=== PATIENT | male | born 1950 | race Caucasian/White ===

== ENCOUNTER 2018-12-20 15:27 | Outpatient (CLI) | payer MEDICARE ==
--- NOTE | 2018-12-20 15:52 | RAD ---
Left leg 2 view COMPARISON: 11/12/2018 FINDINGS: Stable focal abnormality of the mid diaphysis of the fibula. Where visualized, no significa nt periosteal reaction is identified with a nonaggressive appearing expansile process which may relate to fracture healing. IMPRESSION: Nonaggressive appearing mild expansile process of the mid diaphysis of the left fibula wh ich may represent a healing fracture. The possibility of an underlying expansile lesion is not entirely excluded given absence of a documented fracture in this region. Therefore, close continued c linical follow-up as well as imaging follow-up to confirm expected evolution of fracture recommended. CODE T Transcribed Date/Time: 12/20/2018 5:09 PM
== END 2018-12-20 15:28 | disposition home or self-care (01) ==
LOC: SCSRAD 15:27
PROVIDERS: ATTEND Family Medicine
DX: S82.492D Other fracture of shaft of left fibula, subsequent encounter for closed fracture with routine healing (principal)

== ENCOUNTER 2020-01-23 12:51 | Outpatient (CLI) | payer MEDICARE ==
--- NOTE | 2020-01-23 17:43 | CT ---
EXAM: RIGHT UPPER EXTREMITY CT SCAN WITHOUT IV CONTRAST: 01/23/20 HISTORY: Soft tissue injury right upper arm with swelling. No evidence for acute fracture or dislocation or other significant acute osseous process. There is so me very minimal nonspecific fat stranding. There is some AC joint and glenohumeral joint mild osteoar throsis. Minimal downsloping of the anterior acromion. No abnormal joint effusion. No significant sub acromial or subdeltoid bursal fluid collection. No evidence for intramuscular mass or intramuscular a bnormal fluid collection or mild necrosis. IMPRESSION: Mild degenerative changes right AC and glenohumeral joints. Some very minimal nonspecific subcutaneou s fat stranding. No fracture or dislocation or other significant acute osseous process. If the patient has persistent or worsening soft tissue swelling, and continued concern for cellulitis or infection. Follow-up MRI exam would be more sensitive in evaluating for soft tissue changes. POS: [facility]
== END 2020-01-23 12:52 | disposition home or self-care (01) ==
LOC: SCSCT 12:51
PROVIDERS: ATTEND Family Medicine
DX: S49.91XD Unspecified injury of right shoulder and upper arm, subsequent encounter (principal); M19.011 Primary osteoarthritis, right shoulder

== ENCOUNTER 2020-01-30 08:40 | Outpatient (CLI) | payer MEDICARE ==
--- NOTE | 2020-01-30 12:00 | MRI ---
MRI RIGHT SHOULDER WITHOUT CONTRAST: HISTORY: S49.91XT, soft tissue injury of right arm. COMPARISON: CT 01/18/2020. FINDINGS: BICEPS TENDON: The extraarticular biceps tendon is normal. Mild intraarticular tendinosis. LABRUM: There is circumferential labral maceration with extensive intrasubstance tearing. ROTATOR CUFF: There is a high-grade 50% hidden interstitial tear anterior 1.6 cm fibers infraspinatus tendon footpr int. 20-30% bursal surface partial tear of the anterior 1 cm fibrous supraspinatus tendon. No full- thickness perforation. There is also some moderate undersurface partial tearing of the myotendinous junction of the supraspinatus tendon. SUBSCAPULARIS: Mildly tendinotic. CARTILAGE: Multifocal full-thickness cartilage fissures of the posterior and superior glenoid near the labral te ar. There is a type III acromion with thickened acromial spur and coracoacromial ligament. Normal g lenoid version. SOFT TISSUE: Small-cell subacromial subdeltoid bursa effusion. Axillary pouch is thickened. Low-grade loss of th e subcoracoid fat. MUSCLES: Significant muscle atrophy. IMPRESSION: 1. Near-complete circumferential intrasubstance labral tear with maceration of posterior fibers and circumferential intrasubstance tearing. 2. Multifocal full-thickness cartilage fissures of the posterior glenoid near the labral tear. 3. 50-60% interstitial tear of the footprint posterior 1.6 cm fibrous infraspinatus tendon without f ull-thickness perforation. 4. Mild 30-40% bursal surface tearing anterior 1 cm fibrous supraspinatus tendon. No full-thickness perforation. 5. Low-grade tear throughout the supraspinatus myotendinous junction, 20-30% partial articular surfa ce tearing. 6. Type III acromion with narrowing of the subacromial space and reactive small subacromial subdelto id bursa effusion. 7. Mildly thickened axillary pouch and some loss of normal subcoracoid fat can be seen with capsulit is in the correct clinical setting. POS: [facility]
== END 2020-01-30 08:41 | disposition home or self-care (01) ==
LOC: BICMRI 08:40 → MRI 08:41
PROVIDERS: ATTEND Family Medicine
DX: S49.91XD Unspecified injury of right shoulder and upper arm, subsequent encounter (principal); I89.0 Lymphedema, not elsewhere classified; S43.491D Other sprain of right shoulder joint, subsequent encounter

== ENCOUNTER 2021-02-04 09:11 | Outpatient (CLI) | payer MEDICARE ==
[2021-02-04 10:49] LABS: Anion Gap 14 mmol/L (10-20); BUN (Urea Nitrogen) 15 mg/dL (8.4-25.7); Calc. Creatinine Clearance 0 mL/min (70-130); Calcium 9.4 mg/dL (7.8-10.44); Carbon Dioxide 22 mmol/L (23-31); Chloride 107 mmol/L (98-107); Glucose 104 mg/dL (83-110); Potassium 4.4 mmol/L (3.5-5.1); Sodium 139 mmol/L (136-145)
[2021-02-04 10:52] LABS: Hemoglobin 12.4 g/dL (13.5-17.5); Mean Corpuscular HGB CONC 33.9 g/dL (32.0-36.0); Mean Corpuscular Hemoglobin 31.2 pg (27.0-33.0); Mean Platelet Volume 12.4 fl (7.4-10.4); Platelet Count 127 10x3/uL (150-450); RBC Distribution Width 16.2 % (11.5-14.5); Red Blood Cell (RBC) Count 3.98 10x6/uL (4.32-5.72)
[2021-02-04 10:53] LABS: INR-International Normal Ratio 1.1; Prothrombin Time 11.8 sec (9.5-12.1)
== END 2021-02-04 09:12 | disposition home or self-care (01) ==
LOC: LABBT 09:11
PROVIDERS: ATTEND Internal Medicine Cardiovascular Disease
DX: I48.4 Atypical atrial flutter (principal); I48.0 Paroxysmal atrial fibrillation
CPT/HCPCS: 80048; 85027; 85610

== ENCOUNTER 2021-02-07 06:09 | Day surgery (SDC) | payer MEDICARE ==
[2021-02-06 08:51] VITALS: BMI 33.5
[2021-02-07] MEDS ORDERED: Heparin 10,000 UNITS/ 10 ML VIAL ONE (06:48)
[2021-02-07] MEDS ORDERED: Lidocaine 1% (PF) 30 ML VIAL ONE (06:48)
[2021-02-07] MEDS ORDERED: Heparin 25,000 units/D5W 500 ML ONE (06:48)
[2021-02-07] MEDS ORDERED: Midazolam HCl 2 mg/2 ml Vial ONE (07:04)
[2021-02-07] MEDS ORDERED: Famotidine/PF 20 mg/2ml Vial ONE (07:04)
[2021-02-07] MEDS ORDERED: Fentanyl 100 MCG/2 ML VIAL ONE ×2 (07:13→10:28)
[2021-02-07] MEDS ORDERED: ePHEDrine Sulfate 50 MG/10 ML VIAL ONE (07:24)
[2021-02-07] MEDS ORDERED: Rocuronium Bromide 10 MG/ML (10ML VIAL) ONE (07:24)
[2021-02-07] MEDS ORDERED: Metoprolol Tartrate 5 MG/5 ML VIAL ONE (07:24)
[2021-02-07] MEDS ORDERED: Dexamethasone 20 MG/5 ML VIAL ONE (07:24)
[2021-02-07] MEDS ORDERED: Lidocaine 1% PF 5 ML VIAL ONE (07:24)
[2021-02-07] MEDS ORDERED: PHENYLEPHRINE-NS 100 MCG/ML 10 ML SYRINGE ONE (07:24)
[2021-02-07] MEDS ORDERED: Glycopyrrolate 0.2 MG/ML 5 ML SYRINGE ONE (07:24)
[2021-02-07] MEDS ORDERED: PROPOFOL 200 MG/20 ML VIAL ONE (07:24)
[2021-02-07] MEDS ORDERED: Ondansetron PF 4 MG/2 ML Vial ONE (07:24)
[2021-02-07] MEDS ORDERED: Esmolol 100 MG/10 ML VIAL ONE (07:24)
[2021-02-07] MEDS ORDERED: Phenylephrine 10 MG/ML VIAL ONE (08:16)
[2021-02-07] MEDS ORDERED: Protamine Sulfate 50 MG/5 ML VIAL ONE (10:27)
== END 2021-02-07 16:23 | disposition home or self-care (01) ==
LOC: CCL 06:09
PROVIDERS: ATTEND Internal Medicine Cardiovascular Disease
PROC: B246ZZ4 Ultrasonography of Right and Left Heart, Transesophageal (ICD-10-PCS; principal; 2021-02-07)
PROC: 02583ZZ Destruction of Conduction Mechanism, Percutaneous Approach (ICD-10-PCS; 2021-02-07)
PROC: 02K83ZZ Map Conduction Mechanism, Percutaneous Approach (ICD-10-PCS; 2021-02-07)
DX: I48.0 Paroxysmal atrial fibrillation (principal); I48.4 Atypical atrial flutter; I11.9 Hypertensive heart disease without heart failure; I34.0 Nonrheumatic mitral (valve) insufficiency; Z86.73 Personal history of transient ischemic attack (TIA), and cerebral infarction without residual deficits; Z79.01 Long term (current) use of anticoagulants; Z79.899 Other long term (current) drug therapy
CPT/HCPCS: 76942; 85347; 93005; 93312; 93613; 93655; 93656; 93662; C1732; C1759; C1894; C2630; J1100; J1644; J2001; J2250; J2370; J2405; J2704; J2720; J3010; S0028

== ENCOUNTER 2022-02-18 11:45 | Inpatient (IN) | payer MEDICARE ==
[2022-02-18 12:47] LABS: Hemoglobin 11.2 g/dL (13.5-17.5); Mean Corpuscular HGB CONC 33.5 g/dL (32.0-36.0); Mean Corpuscular Hemoglobin 30.8 pg (27.0-33.0); Mean Corpuscular Volume 91.8 fl (81.2-95.1); RBC Distribution Width 21.2 % (11.5-14.5); Red Blood Cell (RBC) Count 3.64 10x6/uL (4.32-5.72); White Blood Cell (WBC) Count 4.9 10x3/uL (3.5-10.5)
[2022-02-18 12:48] LABS: Platelet Count 139 10x3/uL (150-450)
[2022-02-18 12:55] LABS: Prothrombin Time 11.2 sec (9.5-12.1)
[2022-02-18 12:59] LABS: ALT (SGPT) 21 U/L (8-55); AST (SGOT) 36 U/L (5-34); Albumin 4.3 g/dL (3.4-4.8); Alkaline Phosphatase 67 U/L (40-110); Anion Gap 14 mmol/L (10-20); BUN (Urea Nitrogen) 19 mg/dL (8.4-25.7); Bilirubin, Total 0.6 mg/dL (0.2-1.2); Calc. Creatinine Clearance 0 mL/min (70-130); Calcium 9.3 mg/dL (7.8-10.44); Carbon Dioxide 23 mmol/L (23-31); Chloride 106 mmol/L (98-107); Estimated GFR 66; Glucose 104 mg/dL (83-110); Potassium 4.4 mmol/L (3.5-5.1); Protein, Total 6.3 g/dL (5.8-8.1); Sodium 139 mmol/L (136-145)
[2022-02-18 14:32] VITALS: BMI 35.2
[2022-02-20] MEDS ORDERED: CEFAZOLIN 1 GM VIAL ONE (06:41)
[2022-02-20] MEDS ORDERED: Protamine Sulfate 50 MG/5 ML VIAL ONE (06:41)
[2022-02-20] MEDS ORDERED: Heparin 10,000 UNITS/ 10 ML VIAL ONE (06:41)
== END 2022-02-20 13:32 | disposition home or self-care (01) | DRG 274 ==
LOC: SURG A 02-20 06:06
PROVIDERS: ADMIT Internal Medicine Cardiovascular Disease; ATTEND Internal Medicine Cardiovascular Disease
PROC: 02L73DK Occlusion of Left Atrial Appendage with Intraluminal Device, Percutaneous Approach (ICD-10-PCS; principal; 2022-02-20)
PROC: B24BZZ4 Ultrasonography of Heart with Aorta, Transesophageal (ICD-10-PCS; 2022-02-20)
DX: I48.0 Paroxysmal atrial fibrillation (principal); Z20.822 Contact with and (suspected) exposure to COVID-19; Z00.6 Encounter for examination for normal comparison and control in clinical research program; I10 Essential (primary) hypertension; Z86.73 Personal history of transient ischemic attack (TIA), and cerebral infarction without residual deficits; Z79.01 Long term (current) use of anticoagulants; Z82.49 Family history of ischemic heart disease and other diseases of the circulatory system; Z79.899 Other long term (current) drug therapy; Z87.19 Personal history of other diseases of the digestive system; I48.4 Atypical atrial flutter
CPT/HCPCS: 33340; 36430; 80053; 85027; 85347; 85610; 86850; 86900; 86901; 87811; 93312; C1759; J0690; J1644; J2720

== ENCOUNTER 2022-03-20 15:02 | Emergency (ER) | payer MEDICARE ==
[2022-03-20 16:55] LABS: INR-International Normal Ratio 1.4; PTT 32.6 sec (22.9-36.1); Prothrombin Time 17.1 sec (12.0-14.7)
[2022-03-20 16:59] LABS: #Eosinphils 0.1 thou/uL (0.0-0.7); #Lymphocytes 1.3 thou/uL (1.20-3.40); #Monocytes 0.4 thou/uL (0.11-0.59); #Neutrophils 2.2 thou/uL (1.40-6.50); %Basophils 0.1 % (0.0-1.0); %Eosinophils 1.8 % (0.0-10.0); %Lymphocytes 33.2 % (21.0-51.0); %Monocytes 9.4 % (0.0-10.0); %Neutrophils 55.6 % (42.0-75.0); Hemoglobin 9.7 g/dL (14.0-18.0); Mean Corpuscular Hemoglobin 31.8 pg (27.0-31.0); Mean Corpuscular Volume 96.3 fL (78.0-98.0); Mean Platelet Volume 11.5 fL (7.4-10.4); Platelet Count 140 thou/uL (130-400); RBC Distribution Width 20.7 % (11.5-14.5); Red Blood Cell (RBC) Count 3.05 mill/uL (4.70-6.10)
[2022-03-20 17:03] LABS: ALT (SGPT) 16 U/L (8-55); AST (SGOT) 25 U/L (5-34); Albumin 4.6 g/dL (3.4-4.8); Alkaline Phosphatase 79 U/L (40-110); Anion Gap 15 mmol/L (10-20); BUN (Urea Nitrogen) 27 mg/dL (8.4-25.7); Bilirubin, Total 0.8 mg/dL (0.2-1.2); Calc. Creatinine Clearance 0 mL/min (70-130); Calcium 9.9 mg/dL (7.8-10.44); Carbon Dioxide 23 mmol/L (23-31); Chloride 108 mmol/L (98-107); Estimated GFR 41; Globulin 2.4 g/dL (2.4-3.5); Glucose 103 mg/dL (83-110); Potassium 4.8 mmol/L (3.5-5.1); Sodium 141 mmol/L (136-145)
== END 2022-03-20 18:50 | disposition home or self-care (01) ==
LOC: ERS 15:02
DX: K92.2 Gastrointestinal hemorrhage, unspecified (principal); D50.0 Iron deficiency anemia secondary to blood loss (chronic); I48.91 Unspecified atrial fibrillation; E78.5 Hyperlipidemia, unspecified; E78.00 Pure hypercholesterolemia, unspecified; I10 Essential (primary) hypertension; M19.90 Unspecified osteoarthritis, unspecified site; M06.9 Rheumatoid arthritis, unspecified; Z85.89 Personal history of malignant neoplasm of other organs and systems; Z85.47 Personal history of malignant neoplasm of testis; Z79.01 Long term (current) use of anticoagulants; Z79.899 Other long term (current) drug therapy
CPT/HCPCS: 80053; 85025; 85610; 85730; 86850; 86900; 86901; 99284

== ENCOUNTER 2022-04-03 08:25 | Outpatient (CLI) | payer MEDICARE ==
[2022-04-03 09:03] LABS: Hemoglobin 7.4 g/dL (13.5-17.5); Mean Corpuscular Hemoglobin 30.8 pg (27.0-33.0); Mean Corpuscular Volume 96.3 fl (81.2-95.1); Mean Platelet Volume 11.9 fl (7.4-10.4); Platelet Count 184 10x3/uL (150-450); RBC Distribution Width 20.3 % (11.5-14.5)
[2022-04-03 09:28] LABS: INR-International Normal Ratio 1.1; Prothrombin Time 11.4 sec (9.5-12.1)
[2022-04-03 09:39] LABS: Anion Gap 15 mmol/L (10-20); BUN (Urea Nitrogen) 26 mg/dL (8.4-25.7); Calc. Creatinine Clearance 0 mL/min (70-130); Calcium 9.4 mg/dL (7.8-10.44); Carbon Dioxide 21 mmol/L (23-31); Chloride 108 mmol/L (98-107); Estimated GFR 50; Glucose 128 mg/dL (83-110); Potassium 4.7 mmol/L (3.5-5.1); Sodium 139 mmol/L (136-145)
== END 2022-04-03 08:26 | disposition home or self-care (01) ==
LOC: LABBT 08:25
PROVIDERS: ATTEND Internal Medicine Cardiovascular Disease
DX: I48.0 Paroxysmal atrial fibrillation (principal); Z20.822 Contact with and (suspected) exposure to COVID-19; Z79.01 Long term (current) use of anticoagulants; Z95.818 Presence of other cardiac implants and grafts
CPT/HCPCS: 80048; 85027; 85610; 87811

== ENCOUNTER 2022-04-15 07:45 | Outpatient (CLI) | payer MEDICARE | END 2022-04-15 07:46 | disposition home or self-care (01) | LOC: LABBT 07:45 | PROVIDERS: ATTEND Internal Medicine Cardiovascular Disease | DX: Z20.822 Contact with and (suspected) exposure to COVID-19 (principal) | CPT/HCPCS: 87811 ==

== ENCOUNTER 2022-04-17 08:31 | Day surgery (SDC) | payer MEDICARE ==
[2022-04-15 13:15] VITALS: BMI 34.4
[2022-04-17 09:33] LABS: %Basophils 0.3 % (0.0-1.0); %Eosinophils 1.5 % (0.0-10.0); %Lymphocytes 33.8 % (21.0-51.0); %Monocytes 9.5 % (0.0-10.0); Hemoglobin 8.2 g/dL (14.0-18.0); Mean Corpuscular HGB CONC 32.5 g/dL (32.0-36.0); Mean Corpuscular Hemoglobin 31.4 pg (27.0-31.0); Mean Corpuscular Volume 96.5 fL (78.0-98.0); Platelet Count 158 thou/uL (130-400); RBC Distribution Width 18.9 % (11.5-14.5); Red Blood Cell (RBC) Count 2.63 mill/uL (4.70-6.10); White Blood Cell (WBC) Count 3.1 thou/uL (4.8-10.8)
[2022-04-17 09:45] LABS: Anion Gap 18 mmol/L (10-20); BUN (Urea Nitrogen) 28 mg/dL (8.4-25.7); Calc. Creatinine Clearance 78 mL/min (70-130); Carbon Dioxide 17 mmol/L (23-31); Chloride 107 mmol/L (98-107); Estimated GFR 58; Glucose 109 mg/dL (83-110); Potassium 4.7 mmol/L (3.5-5.1); Sodium 137 mmol/L (136-145)
[2022-04-17] MEDS ORDERED: PROPOFOL 0 ML ONE (10:58)
[2022-04-17] MEDS ORDERED: Ketamine 50 MG/ML (10ML VIAL) ONE (10:58)
[2022-04-17 11:39] LABS: #Monocytes 0.3 thou/uL (0.11-0.59); #Neutrophils 1.7 thou/uL (1.40-6.50)
[2022-04-17] MEDS ORDERED: PHENYLEPHRINE-NS 100 MCG/ML 10 ML SYRINGE ONE (11:49)
== END 2022-04-17 12:54 | disposition home or self-care (01) ==
LOC: SDC 08:31
PROVIDERS: ATTEND Internal Medicine Cardiovascular Disease
PROC: B246ZZ4 Ultrasonography of Right and Left Heart, Transesophageal (ICD-10-PCS; principal; 2022-04-17)
DX: I48.19 Other persistent atrial fibrillation (principal); I48.92 Unspecified atrial flutter; I34.0 Nonrheumatic mitral (valve) insufficiency; Z79.82 Long term (current) use of aspirin; Z79.899 Other long term (current) drug therapy; Z91.041 Radiographic dye allergy status; Z95.818 Presence of other cardiac implants and grafts
CPT/HCPCS: 80048; 85025; 93312; J2704

== ENCOUNTER 2022-04-22 10:10 | Day surgery (SDC) | payer MEDICARE ==
[2022-04-22] MEDS ORDERED: Acetaminophen 325 MG TAB PO SCH (10:30)
[2022-04-22] MEDS ORDERED: Acetaminophen 500 MG TAB ONE (11:47)
[2022-04-22] MEDS ORDERED: Acetaminophen 325 MG TAB ONE ×2 (11:48)
[2022-04-22 12:30] LABS: Anisocytosis SLIGHT = 6-15 cells (100X) (0-5/hpf); Band 16 % (5-11); Hemoglobin 8.2 g/dL (14.0-18.0); Lymphocytes 20 % (21-51); MDiff Complete? YES; Macrocytosis SLIGHT = 6-15 cells (100X) (0-5/hpf); Mean Corpuscular HGB CONC 33.2 g/dL (32.0-36.0); Mean Corpuscular Hemoglobin 32.7 pg (27.0-31.0); Mean Corpuscular Volume 98.6 fL (78.0-98.0); Mean Platelet Volume 10.8 fL (7.4-10.4); Monocytes 3 % (0-10); Neutrophil 61 % (42-75); Nucleated RBC 1 % (0); Ovalocytes SLIGHT = 2-5 cells (100X) (0-1/hpf); Platelet Count 174 thou/uL (130-400); Platelet Morphology Comment Appears Adequate; Polychromasia MODERATE = 3-4 cells (100X) (0-2/hpf); RBC Distribution Width 20.4 % (11.5-14.5); Red Blood Cell (RBC) Count 2.51 mill/uL (4.70-6.10); Schistocytes SLIGHT = 2-5 cells (100X) (0-1/hpf); Tear Drops SLIGHT = 2-5 cells (100X) (0-1/hpf)
[2022-04-22 16:37] VITALS: TEMP 97.7
[2022-04-22 16:44] VITALS: BP 97/52
== END 2022-04-22 16:47 | disposition home or self-care (01) ==
LOC: ONC/OP 10:10
PROVIDERS: ATTEND Internal Medicine Gastroenterology
PROC: 30233N1 Transfusion of Nonautologous Red Blood Cells into Peripheral Vein, Percutaneous Approach (ICD-10-PCS; principal; 2022-04-22)
DX: D64.9 Anemia, unspecified (principal); Z91.041 Radiographic dye allergy status
CPT/HCPCS: 36430; 85025; 86850; 86900; 86901; P9016

== ENCOUNTER 2022-07-30 09:49 | Day surgery (SDC) | payer MEDICARE ==
[2022-07-30] MEDS ORDERED: Acetaminophen 500 MG TAB PO SCH (10:30)
[2022-07-30] MEDS ORDERED: diphenhydrAMINE 25 MG CAP PO SCH ×2 (10:30→15:15)
[2022-07-30] MEDS ORDERED: Acetaminophen 500 MG TAB ONE (10:48)
[2022-07-30] MEDS ORDERED: diphenhydrAMINE 25 MG CAP ONE ×2 (10:48→15:02)
[2022-07-30 14:49] VITALS: TEMP 97.6
[2022-07-30 15:10] VITALS: BP 135/64
== END 2022-07-30 15:35 | disposition home or self-care (01) ==
LOC: ONC/OP 09:49
PROVIDERS: ATTEND Internal Medicine
PROC: 30233N1 Transfusion of Nonautologous Red Blood Cells into Peripheral Vein, Percutaneous Approach (ICD-10-PCS; principal; 2022-07-30)
DX: D64.9 Anemia, unspecified (principal); Z88.6 Allergy status to analgesic agent; Z88.8 Allergy status to other drugs, medicaments and biological substances; Z91.041 Radiographic dye allergy status
CPT/HCPCS: 36430; 86850; 86900; 86901; P9016